=== PATIENT | male | born 1960 | race Caucasian/White ===

== ENCOUNTER 2018-06-18 07:15 | Day surgery (SDC) | payer OTHER ==
[2018-06-18] MEDS ORDERED: LIDOCAINE 2% (SDV) 5 ML INJ (08:09)
[2018-06-18] MEDS ORDERED: NEOSTIGMINE 3 MG/3 ML SYRINGE (08:09)
[2018-06-18] MEDS ORDERED: PROPOFOL 20 ML ×2 (08:09→12:15)
[2018-06-18] MEDS ORDERED: ROCURONIUM 50 MG INJ (08:09)
[2018-06-18] MEDS ORDERED: GLYCOPYRROLATE 0.4 MG INJ (08:09)
[2018-06-18] MEDS ORDERED: CEFAZOLIN 1 GM INJ (08:10)
[2018-06-18] MEDS ORDERED: DEXAMETHASONE 4 MG/ML 1 ML INJ ×2 (08:10→12:15)
[2018-06-18] MEDS ORDERED: FENTAnyl 50 MCG/ML VIAL ×3 (08:10→12:15)
[2018-06-18] MEDS ORDERED: MIDAZOLAM 1 MG/ML 2 ML INJ (08:10)
[2018-06-18] MEDS ORDERED: ONDANSETRON 4 MG INJ ×3 (08:10→12:49)
[2018-06-18] MEDS ORDERED: SUCCINYLCHOLINE CHLORIDE 100 MG/5 ML SYG IV ×3 (09:04→12:18)
[2018-06-18] MEDS: BUPIVACAINE 0.25% (MPF) 30 ML INJ (09:22)
[2018-06-18] MEDS ORDERED: BUPIVACAINE 0.25% (MPF) 30 ML INJ (10:08)
[2018-06-18] MEDS ORDERED: OXYCODONE/ACETAMINOPHEN (5/325) TAB PO ×3 (10:30→11:00)
[2018-06-18] MEDS ORDERED: morphine 2 MG INJ IV (10:30)
[2018-06-18] MEDS ORDERED: ONDANSETRON 4 MG INJ IV ×2 (10:30→11:00)
[2018-06-18] MEDS ORDERED: HYDROmorphONE 1 MG/5 ML IV SYRINGE IV ×2 (10:35→11:00)
[2018-06-18] MEDS ORDERED: KETOROLAC 30 MG INJ (10:35)
[2018-06-18] MEDS: HYDROmorphONE 1 MG/5 ML IV SYRINGE IV ×2 (10:46→11:15)
[2018-06-18] MEDS ORDERED: LABETALOL HCL 20MG INJ IV (11:00)
[2018-06-18] MEDS ORDERED: KETOROLAC 15 MG INJ IV (11:00)
[2018-06-18] MEDS ORDERED: FENTAnyl 50 MCG/ML VIAL IV (11:00)
[2018-06-18] MEDS ORDERED: MEPERIDINE 25 MG INJ IV (11:00)
[2018-06-18] MEDS ORDERED: DIPHENHYDRAMINE 50 MG INJ IV (11:00)
[2018-06-18] MEDS: FENTAnyl 50 MCG/ML VIAL IV (11:01)
[2018-06-18] MEDS ORDERED: OXYCODONE/ACETAMINOPHEN (5/325) TAB (11:31)
[2018-06-18] MEDS: OXYCODONE/ACETAMINOPHEN (5/325) TAB PO (11:32)
[2018-06-18] MEDS ORDERED: LIDOCAINE 100 MG SYRINGE (12:16)
[2018-06-18] MEDS: ONDANSETRON 4 MG INJ IM (12:57)
== END 2018-06-18 13:20 | disposition home or self-care (01) ==
LOC: SDS 07:15
DX: K40.20 Bilateral inguinal hernia, without obstruction or gangrene, not specified as recurrent (principal); Z87.891 Personal history of nicotine dependence
CPT/HCPCS: 49505